=== PATIENT | male | born 1950 | race Caucasian/White ===

== ENCOUNTER 2016-12-23 06:27 | Inpatient (IN) | payer MEDICARE ==
[2016-12-16 20:53] LABS: WBC (NOT ORDERED) (RFLEX) 0 (0-5)
[2016-12-16 21:18] LABS: ASCORBIC ACID (UR NOT ORDER) NEG (NEG); BILIRUBIN, URINE NEGATIVE (NEG); KETONE, URINE NEGATIVE (NEG); LEUKOCYTE ESTERASE(NOT OR NEG (NEG)
[2016-12-16 21:19] LABS: BASOPHILS 0.2 %; BASOPHILS ABSOLUTE 0.02 10/3/uL (0.0-0.16); EOSINOPHILS 3.8 %; EOSINOPHILS ABSOLUTE 0.31 10/3/uL (0.0-0.53); HEMATOCRIT 47.4 % (40.0-51.0); HEMOGLOBIN 16.2 g/dL (13.6-17.8); IMMATURE GRANULOCYTES 0.4 %; IMMATURE GRANULOCYTES ABSOLUTE 0.03 10/3/uL (0.0-0.11); LYMPHOCYTES 27.8 %; LYMPHOCYTES ABSOLUTE 2.27 10/3/uL (0.67-4.30); MANUAL DIFF NO %; MEAN CORPUS HGB CONC 34.2 g/dL (32.0-36.0); MEAN CORPUSCULAR HEMOGLOB 31.1 pg (26.0-34.0); MEAN PLATELET VOLUME 10.4 fL (9.2-13.0); MONOCYTES 10.8 %; MONOCYTES ABSOLUTE 0.88 10/3/uL (0.21-1.20); NEUTROPHILS ABSOLUTE 4.67 10/3/uL (2.02-8.40); PLATELET COUNT 275 10/3/uL (150-400); PROTIME (NOT ORD) 13.4 SEC (12.0-14.5); RED CELL COUNT 5.21 10/6/uL (4.7-6.1); WHITE BLOOD CELLS 8.2 10/3/uL (4.5-10.5)
[2016-12-16 21:29] LABS: A/G RATIO 1.4 (0.7-1.9); ALKALINE PHOSPHATASE 95 U/L (45-117); BUN (BLOOD UREA NITROGEN) 17 MG/DL (6-23); CALCIUM, SERUM 8.9 MG/DL (8.5-10.4); CHLORIDE, SERUM 106 MMOL/L (96-112); CO2 (CARBON DIOXIDE) 26 MMOL/L (24-34); CREATININE 1.01 MG/DL (0.70-1.30); GFR AFRICAN AMERICAN 89 ML/MIN (>=60); GFR NON AFRICAN AMERICAN 77 ML/MIN (>=60); GLOBULIN 2.8 G/DL (2.5-4.1); GLUCOSE, SERUM 186 MG/DL (60-99); POTASSIUM, SERUM 4.3 MMOL/L (3.5-5.3); SGOT(AST) 21 U/L (5-40); SGPT(ALT) 27 U/L (5-65); SODIUM, SERUM 141 MMOL/L (135-148); TOTAL BILIRUBIN 0.5 MG/DL (0-1.2); TOTAL PROTEIN 6.8 G/DL (6.0-8.5)
--- NOTE | ~2016-12-23 | OP ---
Record Of Operation [facility] [address] [place]. [address] NAME: PAULIE BRANDON JR : 48 STATUS : ADM IN PAT#: [id number] AGE: 66 ADM/REG DATE : 12/23/16 MR#: [id number] REPORT SERV DATE: 12/23/16 DICTATED BY: SAMANTHA PEARSON DATE: 12/23/16 REPORT STATUS : Draft TRANSCRIBED BY: MODEsau DATE: 12/23/16 DATE OF PROCEDURE: 12/23/2016 PREOPERATIVE DIAGNOSIS: Severe right knee degenerative joint disease. POSTOPERATIVE DIAGNOSIS: Severe right knee degenerative joint disease. OPERATION: Right posterior stabilized total knee replacement, cemented. SIDE: Right. SIZE: See chart. ANESTHESIA: See chart. ESTIMATED BLOOD LOSS: About 10 mL. TOURNIQUET TIME: Approximately 1 hour and 10 minutes. COMPLICATIONS: None. SPECIMENS: Articular surfaces. PROCEDURE IN DETAIL: The patient was appropriately identified and marked. The operative side agreed with the consent form and it was checked by all members of the surgical team. The patient was taken to the operating room and anesthesia was induced per the anesthesiologist. The patient was carefully transferred to the operating table without incident. The patient received appropriate prophylactic antibiotics and a Arellano catheter was placed in the standard sterile technique. The patient was then carefully positioned, padded, prepped and draped in the normal sterile fashion. The operative leg had been appropriately identified and checked by all members of the operating team against the consent form and found to be the correct limb. The patient's lower extremity was then exsanguinated with an Srikanth wrap and a tourniquet was inflated to 350 mm/Hg. Sharp dissection was carried out through a straight midline longitudinal incision and electrocautery through the fat. Sharp quad splitting approach was carried out between about the medial 10 percent of the tendon and the lateral 90 percent of the tendon and down around the medial aspect of the patella and then 1 cm medial to the tibial tubercle. The patella was carefully everted and the posterior fat pad was excised and gentle MCL elevation was carried out off the proximal medial tibia subperiosteally. IM guide was placed in the distal femur after using the appropriate drill. The distal femoral cutting guide was held with 2 pins and the distal cut made. Meniscal fragments and the ACL and the PCL were excised with electrocautery, carefully staying anterior to the posterior fat pad. The proximal tibial alignment guide was set appropriately and the proximal tibial cut made. Spacer block verified full extension with excellent mediolateral balance. Sizing guide was used to place 2 drill holes in the distal femur and the four-in-one cutting block was then placed, impacted and checked Record Of Operation [facility] [address] [place]. [address] NAME: PAULIE BRANDON JR : 48 STATUS : ADM IN PAT#: [id number] AGE: 66 ADM/REG DATE : 12/23/16 MR#: [id number] REPORT SERV DATE: 12/23/16 DICTATED BY: SAMANTHA PEARSON DATE: 12/23/16 REPORT STATUS : Draft TRANSCRIBED BY: EDDIE DATE: 12/23/16 to be sure it would not notch with an chelsy wing and it was held with 2 pins. The anterior cut, posterior cut, anterior chamfer and posterior chamfer cuts were made. The pins were removed and the block was removed. A posterior release was carried out with a curved 3/4 inch osteotome staying right on the bone posteriorly. The box-cut guide was then placed, impacted and held with 2 pins and a reciprocating saw was used to cut out the box. With the trial components in place, there was excellent medial/lateral balance. The patella was then measured with a caliper, cut first with an oscillating saw and then reamed with a patella reamer. With the trial patella in place, there was excellent patellar tracking. Rotation was marked on the tibia and the tibia prepared with a drill and stamp chisel. All surfaces were then copiously irrigated with pulsatile lavage, carefully dried and then vacuum-mixed cement was pressurized with a cement gun in a doughy phase. The tibial component was placed, impacted and excess cement was removed. The cement was then pressurized in the femur and placed on the posterior runners of the femoral component, which was placed, impacted and excess cement removed and the knee was brought out into extension on a trial spacer. The cement was then pressurized in the patella. Patellar component was then placed, clamped and excess cement was removed. Once all cement was hardened, the knee was taken through range of motion. Further extruded cement was removed with a small osteotome. Then based on the trial inserts, we decided on the actual insert, which was placed in the standard fashion and held with a locking mechanism. The knee was then copiously irrigated and then closed in a layered fashion over a medium Hemovac drain superolaterally with interrupted #1 in the deep fascia, 2-0 subcutaneous and jenn in the skin. The wounds were dressed sterilely and the tourniquet was deflated. The patient was then awakened and taken to the postanesthesia care unit without incident. All counts were correct at the end of the case. VICB/EDDIE Anamaria Pearson M.D. / [id number] CC: Anamaria Pearson M.D.
--- NOTE | ~2016-12-23 | CN ---
Consultation Report [facility] [address] [place]. [address] NAME: PAULIE BRANDON JR : 48 STATUS : ADM IN [facility]#: [id number] AGE: 66 ADM/REG DATE : 12/23/16 MR#: [id number] REPORT SERV DATE: 12/23/16 DICTATED BY: TAJ DUBOSE DATE: 12/23/16 REPORT STATUS : Draft TRANSCRIBED BY: EDDIE DATE: 12/23/16 CONSULTATION DATE OF CONSULTATION: 12/23/2016 CHIEF COMPLAINT: Management of diabetes. IMPRESSION: 1. Hyperglycemia most likely new onset type 2 diabetes mellitus. 2. Osteoarthritis, status post right knee arthroplasty with a history of left knee arthroplasty 19 years ago. 3. Anxiety. 4. Allergic rhinitis. PLAN: At this time, would recommend continuing half-normal saline as ordered. We will check fingerstick blood glucose at bedtime and before meals. We will check a hemoglobin A1c. Start patient on level 1 sliding scale. Oral medications will be initiated at discharge depending on what the hemoglobin A1c is. We will check a fasting lipid panel as well as B12, folate, and TSH. We thank you for this consultation. The hospitalist team will follow. HISTORY OF PRESENT ILLNESS: The patient is a 66-year-old white male, relatively healthy with no prior history of type 2 diabetes mellitus or hypertension or heart disease, who came in as an elective surgery of right knee arthroplasty. Preoperatively, he was noted to have a glucose of 186, and on the day of surgery, he was noted to have a glucose of 211, so Medicine Service was asked to evaluate the patient postoperatively for diabetes. This patient has had significant nocturia and polyuria. He does have dryness in the mouth. He denies any chest pain, shortness of breath, edema. He has not had any other problems. REVIEW OF SYSTEMS: A 10-point review of systems is negative. PAST MEDICAL HISTORY: Significant for allergic rhinitis, osteoarthritis, and anxiety. PAST SURGICAL HISTORY: Significant for right shoulder surgery x2, hernia repair, appendectomy. ALLERGIES: ASPIRIN. HOME MEDICATIONS: Ibuprofen 200 mg daily, Dulera 100/5 two puffs twice daily, Zoloft 100 mg once at bedtime. SOCIAL HISTORY: The patient denies use of tobacco, cigarettes, or illicit substances. Used alcohol in the distant past. Consultation Report [facility] [address] [place]. [address] NAME: PAULIE BRANDON JR : 48 STATUS : ADM IN PAT#: [id number] AGE: 66 ADM/REG DATE : 12/23/16 MR#: [id number] REPORT SERV DATE: 12/23/16 DICTATED BY: TAJ DUBOSE DATE: 12/23/16 REPORT STATUS : Draft TRANSCRIBED BY: EDDIE DATE: 12/23/16 FAMILY HISTORY: Mother with diabetes. Daughter with diabetes. Father with ALS. Both parents from heart disease. PHYSICAL EXAMINATION: GENERAL: White male, lying on the bed, appears to be in no obvious respiratory distress. He is awake and alert. He is oriented. VITAL SIGNS: Stable. He is afebrile. HEENT: Head is normocephalic, atraumatic. Pupils are equal, round, and reactive to light. Extraocular muscles are intact. Sclerae anicteric. Conjunctivae normal. Oropharynx without lesion. Tongue protrudes in midline. Uvula midline. NECK: Supple. No jugular venous distention. No carotid bruits or thyromegaly is appreciated. No lymphadenopathy in the neck is palpable. HEART: Regular rate and rhythm. No murmurs, rubs, or gallops are heard. LUNGS: Clear to auscultation both anteriorly and posteriorly without rales, rhonchi, wheezing, or consolidation. ABDOMEN: Slightly obese, soft, nontender, good bowel sounds. No rebound or guarding. No organomegaly. EXTREMITIES: Without cyanosis, clubbing, or edema. Right extremity is dressed and has a back drain in it. NEUROLOGIC: Grossly intact. LABS: Fairly within normal except for glucose of 186. These were all preoperative labs. No recent labs are available. Once again, we thank you for this consultation and the hospitalist department will follow. FEDERICO/EDDIE Taj Dubose M.D. / [id number] CC: Anamaria Mae M.D.
[~2016-12-23 06:27] MED LIST: ADVIL PO; DULERA 100 MCG/13 GM INH; ZOL100 PO
[2016-12-24 04:25] LABS: BASOPHILS 0.1 %; BASOPHILS ABSOLUTE 0.01 10/3/uL (0.0-0.16); EOSINOPHILS 0.2 %; EOSINOPHILS ABSOLUTE 0.03 10/3/uL (0.0-0.53); HEMOGLOBIN 13.9 g/dL (13.6-17.8); IMMATURE GRANULOCYTES 0.3 %; IMMATURE GRANULOCYTES ABSOLUTE 0.04 10/3/uL (0.0-0.11); LYMPHOCYTES 13.5 %; LYMPHOCYTES ABSOLUTE 1.75 10/3/uL (0.67-4.30); MEAN CORPUS HGB CONC 34.2 g/dL (32.0-36.0); MEAN CORPUSCULAR HEMOGLOB 31.1 pg (26.0-34.0); MEAN CORPUSCULAR VOLUME 90.8 fL (80-100); MONOCYTES 13.7 %; MONOCYTES ABSOLUTE 1.78 10/3/uL (0.21-1.20); NEUTROPHILS 72.2 %; NEUTROPHILS ABSOLUTE 9.34 10/3/uL (2.02-8.40); PLATELET COUNT 292 10/3/uL (150-400); RBC DISTRIBUTION WIDTH 13.8 % (12.0-16.0); RED CELL COUNT 4.47 10/6/uL (4.7-6.1)
[2016-12-24 04:26] LABS: HEMATOCRIT 40.6 % (40.0-51.0); MANUAL DIFF NO %
[2016-12-24 04:30] LABS: INTERNATIONAL NORMAL RATI 1.2 UNITS (-); PROTIME (NOT ORD) 15.4 SEC (12.0-14.5)
[2016-12-24 05:03] LABS: ALBUMIN 3.4 G/DL (3.5-5.0); BUN (BLOOD UREA NITROGEN) 14 MG/DL (6-23); CALCIUM, SERUM 8.7 MG/DL (8.5-10.4); CHLORIDE, SERUM 106 MMOL/L (96-112); CHOL/HDL RATIO(NOT ORDER) 5.4 (0-5); CHOLESTEROL 185 MG/DL (< 200); CO2 (CARBON DIOXIDE) 28 MMOL/L (24-34); CREATININE 1.17 MG/DL (0.70-1.30); GFR AFRICAN AMERICAN 74 ML/MIN (>=60); GFR NON AFRICAN AMERICAN 64 ML/MIN (>=60); GLUCOSE, SERUM 185 MG/DL (60-99); HDL CHOLESTEROL 34 MG/DL (> 39); LDL CHOLESTEROL 126 MG/DL (< 130); NON-HDL CHOLESTEROL 151 MG/DL (< 160); PHOSPHORUS, SERUM 3.6 MG/DL (2.5-4.5); POTASSIUM, SERUM 4.4 MMOL/L (3.5-5.3); SODIUM, SERUM 140 MMOL/L (135-148); TRIGLYCERIDE 126 MG/DL (< 150); ULTRASENSITIVE TSH 0.469 MCIU/ML (0.358-3.740)
[2016-12-24 05:04] LABS: FOLATE 4.9 NG/ML (>5.2)
[2016-12-25 06:34] LABS: HEMATOCRIT 36.9 % (40.0-51.0); HEMOGLOBIN 12.9 g/dL (13.6-17.8)
[2016-12-25 06:51] LABS: PROTIME (NOT ORD) 22.5 SEC (12.0-14.5)
[2016-12-25] MEDS ORDERED: PCET PO (10:20)
[2016-12-25] MEDS ORDERED: C2 (10:21)
[2016-12-25] MEDS ORDERED: ZOFRAN4 PO (10:21)
[2016-12-25] MEDS ORDERED: GLUCPH PO (10:22)
== END 2016-12-25 12:16 | disposition home or self-care (01) | DRG 470 ==
LOC: SDC/OF 06:27 → PACU 11:03 → 3JRC 12:03
PROVIDERS: Specialist
PROC: 3E0T3CZ (ICD-10-PCS; 2016-12-23)
PROC: 0SRC0J9 Replacement of Right Knee Joint with Synthetic Substitute, Cemented, Open Approach (ICD-10-PCS; principal; 2016-12-23 08:15)
DX: M17.11 Unilateral primary osteoarthritis, right knee (principal); E11.65 Type 2 diabetes mellitus with hyperglycemia; Z68.41 Body mass index [BMI] 40.0-44.9, adult; F41.9 Anxiety disorder, unspecified; J30.9 Allergic rhinitis, unspecified; J45.909 Unspecified asthma, uncomplicated; E66.01 Morbid (severe) obesity due to excess calories; Z96.652 Presence of left artificial knee joint; Z79.899 Other long term (current) drug therapy; Z88.6 Allergy status to analgesic agent; Z88.5 Allergy status to narcotic agent; Z98.890 Other specified postprocedural states; Z90.49 Acquired absence of other specified parts of digestive tract; Z83.3 Family history of diabetes mellitus; Z82.49 Family history of ischemic heart disease and other diseases of the circulatory system
CPT/HCPCS: 36415; 71020-PO; 80053; 80061; 80069; 81001; 82607; 82746; 82962; 83036; 84443; 85014; 85018; 85025; 85610; 87641; 88305; 88311; 93005; 94640; 97110-GP; 97150-GP; 97161-GP; 97165-GO; A9270-GY; C1776; G8978-CJ-GP; G8979-CH-GP; G8987-CJ-GO; G8988-CJ-GO; G8989-CJ-GO; J0690; J1885; J2250; J2270; J2405; J2710; J2795; J3010